=== PATIENT | male | born 1950 | race Caucasian/White ===

== ENCOUNTER 2017-01-26 21:49 | Inpatient (IN) | payer OTHER, MEDICARE ==
[~2017-01-26] VITALS: Ht 177.8 cm; Wt 106.1 kg
[~2017-01-26 21:49] MED LIST: BUPR150T PO; CARV12.5 PO; Cyclobenzaprine Hcl PO; ELMI100C PO; ENAL10TA7 PO; FENO160T2 PO; FURO1TAB93 PO; GABA250S PO; GLYB1TAB51 PO; HYDR-3580 PO; IPRAAER IN; MAGN500T4 PO; OMEP20CA5 PO; POTA99TA12 PO; ROSU10 PO; Z.0.OXYGENDME NC; ZITH250T PO
[2017-01-26 22:13] VITALS: BP 154/76; PULSE 85; RESP 18; TEMP 98.3; O2SAT 97
[2017-01-26 22:44] VITALS: RESP 20; O2SAT 94
[2017-01-26 22:48] VITALS: BP 140/71; PULSE 81; RESP 20; O2SAT 97
[2017-01-26] MEDS ORDERED: SODIUM CHLORIDE 0.9% FLUSH 10 ML FLUSH IVF PRN (23:00)
[2017-01-26] MEDS ORDERED: methylPREDNISolone SOD SUCC 125 MG/2 ML VIAL IVP ONE (23:00)
[2017-01-26 23:07] VITALS: O2SAT 100
[2017-01-26] MEDS: RESP: ALBUTEROL 2.5 MG/IPRATROPIUM 0.5 MG NEB (SCH) INH ×3 (23:07→23:27)
[2017-01-26] MEDS ORDERED: OMEP40CA2 PO (23:21)
[2017-01-26] MEDS ORDERED: ESCI20TA PO (23:21)
[2017-01-26] MEDS ORDERED: ROSU20 PO (23:21)
[2017-01-26] MEDS ORDERED: FURO40TA PO (23:21)
[2017-01-26] MEDS ORDERED: FLUT1INH INH (23:21)
[2017-01-26] MEDS ORDERED: ROSU1TAB6 PO (23:21)
[2017-01-26] MEDS ORDERED: D400400C PO (23:21)
[2017-01-26] MEDS ORDERED: ESSE250T PO (23:21)
[2017-01-26] MEDS ORDERED: CARV12.52 PO (23:21)
[2017-01-26] MEDS ORDERED: GABA600T PO (23:21)
[2017-01-26] MEDS ORDERED: ELMI100C PO (23:21)
[2017-01-26] MEDS ORDERED: METF1000 PO (23:21)
[2017-01-26] MEDS ORDERED: ASPI81CH CHEW (23:21)
[2017-01-26] MEDS ORDERED: POTA2.5T PO (23:21)
[2017-01-26 23:25] VITALS: PULSE 78; RESP 20; O2SAT 97
--- NOTE | 2017-01-26 23:40 | RADHPO ---
EXAM DATE/TIME: 01/26/2017 23:21 [place] COMPARISON: CHEST SINGLE AP, May 09, 2014, 6:29. INDICATIONS : Short of breath. MEDICAL HISTORY : Chronic obstructive pulmonary disease. Diabetes mellitus type II. SURGICAL HISTORY : None. ENCOUNTER: Initial ACUITY: 1 day PAIN SCORE: 0/10 LOCATION: Bilateral chest FINDINGS: A single view of the chest demonstrates the lungs to be symmetrically aerated without evidence of mas s, infiltrate or effusion. There is mild hazy opacity at the right lung base. There are multiple old healed left-sided rib fractures. The cardiomediastinal contours are unremarkable. Osseous structures are intact. CONCLUSION: 1. Mild hazy opacity at the right lung base. 2. Multiple old healed left-sided rib fractures. Steven Mejia MD on January 26, 2017 at 23:37 Board Certified Radiologist. This report was verified electronically.
[2017-01-26 23:48] LABS: AUTOMATED NEUTROPHIL # 4.9 TH/MM3 (1.8-7.7); BASOPHIL # 0.1 TH/MM3 (0-0.2); BASOPHIL % 2.1 % (0.0-2.0); EOSINOPHIL # 0.1 TH/MM3 (0-0.4); EOSINOPHIL % 0.8 % (0.0-4.0); HEMATOCRIT 42.4 % (39.0-51.0); LYMPH % 20.2 % (9.0-44.0); LYMPHOCYTE # 1.4 TH/MM3 (1.0-4.8); MEAN CELL VOLUME 92.3 FL (80.0-100.0); MEAN CORPUSCULAR HEMOGLOBIN 29.9 PG (27.0-34.0); MEAN CORPUSCULAR HGB CONC 32.4 % (32.0-36.0); MONO % 5.9 % (0.0-8.0); PLATELET COUNT 99 TH/MM3 (150-450); RED CELL DISTRIBUTION WIDTH 15.9 % (11.6-17.2); WHITE BLOOD COUNT 6.9 TH/MM3 (4.0-11.0)
[2017-01-26 23:57] LABS: CHLORIDE 97 MEQ/L (98-107); POTASSIUM 4.8 MEQ/L (3.5-5.1); SODIUM (NA) 139 MEQ/L (136-145)
[2017-01-27] VITALS (11 sets, daily range): BP systolic 132–176; BP diastolic 63–85; PULSE 83–94; RESP 18–20; TEMP 96.8–99; O2SAT 91–98
[2017-01-27 00:01] LABS: ANION GAP 3 MEQ/L (5-15); BLOOD UREA NITROGEN 21 MG/DL (7-18)
[2017-01-27 00:03] LABS: HEMO FLAGS AUTO DIFF
[2017-01-27 00:07] LABS: APTT (PATIENT) 23.2 SEC (24.3-30.1); INTERNATIONAL NORMALIZED RATIO 0.9 RATIO; PROTHROMBIN TIME - PATIENT 9.8 SEC (9.8-11.6)
[2017-01-27 00:08] LABS: ALKALINE PHOSPHATASE 222 U/L (45-117); ALT (GPT) 51 U/L (12-78); AST (GOT) 40 U/L (15-37); GLOMERULAR FILTRATION RATE 77 ML/MIN (>89); TOTAL BILIRUBIN ADULT 0.7 MG/DL (0.2-1.0)
[2017-01-27 00:12] LABS: CREATINE KINASE 54 U/L (39-308)
[2017-01-27 00:23] LABS: PLATELET ESTIMATE SMEAR LOW (NORMAL); PLATELET MORPHOLOGY NORMAL (NORMAL); SCAN/DIFF AUTO DIFF CONFIRMED
[2017-01-27] MEDS ORDERED: ASPIRIN 81 MG CHEW TAB CHEW ONE (00:45)
--- NOTE | 2017-01-27 01:05 | PD ---
HPI Chief Complaint: Respiratory Distress Time Seen by Provider: 22:48 Travel History International Travel<30 days: Yes Contact w/Intl Traveler<30days: Yes Name of Country Traveled to: [place] [facility] [place] Traveled to known affect area: No History of Present Illness HPI Patient is a 66-year-old male history of COPD who comes in complaining of shortness of breath. He was admitted at an outside hospital 3 weeks ago for 1 week's time for shortness of breath. He says at that time he was treated for pneumonia as well. He says since being discharged 2 weeks ago, his shortness of breath has steadily worsened. He was not given prescription for albuterol. He has been taking his other medications as prescribed. He is still smoking. He denies chest pain. He denies fever or chills. He is also complaining of bilateral leg swelling. He says the swelling has worsened and now he is weeping fluid. PFSH Past Medical History High Cholesterol: Yes Congestive Heart Failure: Yes COPD: Yes Diabetes: Yes Patient Takes Glucophage: No Hypertension: Yes Myocardial Infarction: Yes Influenza Vaccination: No Past Surgical History Cardiac Surgery: Yes Coronary Artery Bypass Graft: Yes Oral Surgery: Yes (throat polyps removed) Pacemaker: No Other Surgery: Yes Social History Alcohol Use: No Tobacco Use: Yes (1 2ppd) Substance Use: No Allergies-Medications (Allergen,Severity, Reaction): Coded Allergies: Contrast Media (Verified Allergy, Severe, HIVES, SWELLING, CHEST PALPITATIONS, 01/26/17) Demerol (Verified Allergy, Unknown, 01/26/17) PT DOES NOT RECALL REACTION Reported Meds & Prescriptions Reported Meds & Active Scripts Active Reported Potassium Gluconate 550 Mg Tab 550 Mg PO DAILY Magnesium 250 Mg Tab 250 Mg PO DAILY Vitamin D3 400 (Cholecalciferol) 400 Unit Cap 400 Units PO DAILY Escitalopram (Escitalopram Oxalate) 20 Mg Tab 20 Mg PO DAILY Crestor (Rosuvastatin Calcium) 20 Mg Tab 20 Mg PO DAILY Gabapentin 600 Mg Tab 900 Mg PO QID Metformin (Metformin HCl) 1,000 Mg Tab 1,000 Mg PO BIDPC With meals Furosemide 40 Mg Tab 40 Mg PO BID Elmiron (Pentosan Polysulfate Sodium) 100 Mg Cap 100 Mg PO TID Omeprazole 40 Mg Cap 40 Mg PO BID Rosuvastatin (Rosuvastatin Calcium) 10 Mg Tab 10 Mg PO HS Carvedilol 12.5 Mg Tab 12.5 Mg PO BID Breo Ellipta Inh (Fluticasone/Vilanterol) 100-25 Mcg/Act Inh 1 Puff INH DAILY Use daily at the same time. Aspirin 81 Mg Chew 324 Mg CHEW ONCE Review of Systems Except as stated in HPI: all other systems reviewed are Neg General / Constitutional: No: Fever, Chills HENT: No: Headaches, Lightheadedness Cardiovascular: No: Chest Pain or Discomfort Respiratory: Positive: Cough, Shortness of Breath, Wheezing Gastrointestinal: No: Nausea, Vomiting Musculoskeletal: Positive: Edema Skin: Positive Change in Pigmentation Neurologic: No: Weakness, Dizziness Physical Exam Narrative GENERAL: Awake and alert in mild respiratory distress. SKIN: Bilateral lower extremities are erythematous with leakage of clear fluids. HEAD: Atraumatic. Normocephalic. EYES: Pupils equal and round. No scleral icterus. ENT: Mucous membranes pink and moist. NECK: Trachea midline. No JVD. CARDIOVASCULAR: Regular rate and rhythm. No murmur appreciated. RESPIRATORY: Tachypnea, decreased breath sounds bilaterally. Breath sounds equal bilaterally. GASTROINTESTINAL: Abdomen soft, non-tender, nondistended. MUSCULOSKELETAL: No obvious deformities. No clubbing. No cyanosis. Large pitting edema bilateral lower extremities. NEUROLOGICAL: Awake and alert. No obvious cranial nerve deficits. Motor grossly within normal limits. Normal speech. PSYCHIATRIC: Appropriate mood and affect; insight and judgment normal. Data Data Last Documented VS Vital Signs Date Time Temp Pulse Resp B/P Pulse Ox O2 Delivery O2 Flow Rate FiO2 01/26/17 23:25 78 20 97 Nasal Cannula 2 01/26/17 22:48 140/71 01/26/17 22:13 98.3 Orders Complete Blood Count With Diff (01/26/17 22:57) Comprehensive Metabolic Panel (01/26/17 22:57) B-Type Natriuretic Peptide (01/26/17 22:57) Act Partial Throm Time (Ptt) (01/26/17 22:57) Prothrombin Time / Inr (Pt) (01/26/17 22:57) Ckmb (Isoenzyme) Profile (01/26/17 22:57) Troponin I (01/26/17 22:57) Iv Access Insert/Monitor (01/26/17 22:57) Electrocardiogram (01/26/17 22:57) Ecg Monitoring (01/26/17 22:57) Oximetry (01/26/17 22:57) Oxygen Administration (01/26/17 22:57) Chest, Single Ap (01/26/17 22:57) Sodium Chloride 0.9% Flush (Ns Flush) (01/26/17 23:00) Methylprednisolone So Succ Inj (Solumedr (01/26/17 23:00) Albuterol-Ipratropium Neb (Duoneb Neb) (01/26/17 23:00) Aspirin Chew (Aspirin Chew) (01/27/17 00:45) Admit Order (Ed Use Only) (01/27/17 ) Labs Laboratory Tests Test 01/26/17 23:20 White Blood Count 6.9 TH/MM3 Red Blood Count 4.60 MIL/MM3 Hemoglobin 13.8 GM/DL Hematocrit 42.4 % Mean Corpuscular Volume 92.3 FL Mean Corpuscular Hemoglobin 29.9 PG Mean Corpuscular Hemoglobin 32.4 % Concent Red Cell Distribution Width 15.9 % Platelet Count 99 TH/MM3 Mean Platelet Volume 9.8 FL Neutrophils (%) (Auto) 71.0 % Lymphocytes (%) (Auto) 20.2 % Monocytes (%) (Auto) 5.9 % Eosinophils (%) (Auto) 0.8 % Basophils (%) (Auto) 2.1 % Neutrophils # (Auto) 4.9 TH/MM3 Lymphocytes # (Auto) 1.4 TH/MM3 Monocytes # (Auto) 0.4 TH/MM3 Eosinophils # (Auto) 0.1 TH/MM3 Basophils # (Auto) 0.1 TH/MM3 CBC Comment AUTO DIFF Differential Comment AUTO DIFF CONFIRMED Platelet Estimate LOW Platelet Morphology Comment NORMAL Red Cell Morphology Comment NORMAL Prothrombin Time 9.8 SEC Prothromb Time International 0.9 RATIO Ratio Activated Partial 23.2 SEC Thromboplast Time Sodium Level 139 MEQ/L Potassium Level 4.8 MEQ/L Chloride Level 97 MEQ/L Carbon Dioxide Level 39.0 MEQ/L Anion Gap 3 MEQ/L Blood Urea Nitrogen 21 MG/DL Creatinine 0.98 MG/DL Estimat Glomerular Filtration 77 ML/MIN Rate Random Glucose 177 MG/DL Calcium Level 8.8 MG/DL Total Bilirubin 0.7 MG/DL Aspartate Amino Transf 40 U/L (AST/SGOT) Alanine Aminotransferase 51 U/L (ALT/SGPT) Alkaline Phosphatase 222 U/L Total Creatine Kinase 54 U/L Troponin I 0.08 NG/ML B-Type Natriuretic Peptide 179 PG/ML Total Protein 6.8 GM/DL Albumin 2.6 GM/DL MDM Medical Decision Making Medical Screen Exam Complete: Yes Emergency Medical Condition: Yes Medical Record Reviewed: Yes Interpretation(s) ECG shows sinus rhythm at 73, no ST elevation or depression, right bundle- branch block. Differential Diagnosis COPD exacerbation versus pneumonia versus CHF versus ACS Narrative Course Patient is a 66-year-old male comes in complaining of shortness of breath. He has decreased breath sounds bilaterally and is to On arrival. O2 sat was in the 80s on room air, improved on nasal cannula to 94%. IVs have, labs sent, patient connected to the weight tester. Labs show a troponin of 0.08, this is likely due to hypoxia. Chest x-ray shows a right-sided opacity. Patient was on antibiotics for a week and a half. He has no fever and white blood cell count is within normal limits , I believe x-ray findings reveal a resolving pneumonia. Patient given 3 duo nebs as well as Solu-Medrol. He reports feeling better. We 'll be admitted for further management of COPD as well as trending of his troponin. Diagnosis Primary Impression: COPD exacerbation Additional Impressions: Hypoxia Elevated troponin Admitting Information Admitting Physician Requests: Admit Condition: Stable Amara Watts MD January 27, 2017 01:05
[2017-01-27] MEDS ORDERED: RESP: ALBUTEROL 2.5 MG/IPRATROPIUM 0.5 MG NEB (PRN) NEB (01:45)
[2017-01-27] MEDS ORDERED: SODIUM CHLORIDE 0.9% FLUSH 10 ML FLUSH IV FLUSH PRN (01:45)
[2017-01-27] MEDS ORDERED: GLUCAGON 1 MG/ML VIAL OTHER PRN ×2 (01:45→10:00)
[2017-01-27] MEDS ORDERED: DEXTROSE 50% IN WATER 50 ML VIAL(D50) IV PRN ×2 (01:45→10:00)
[2017-01-27] MEDS ORDERED: NALOXONE HCL 0.4 MG/ML AMP IV PRN (01:45)
[2017-01-27] MEDS: RESP: ALBUTEROL 2.5 MG/IPRATROPIUM 0.5 MG NEB (SCH) NEB ×4 (03:27→20:59)
[2017-01-27] MEDS ORDERED: methylPREDNISolone SOD SUCC 40 MG/1 ML VIAL IV PUSH SCH (06:00)
[2017-01-27] MEDS: PANTOPRAZOLE SODIUM 40 MG VIAL IV PUSH SCH (06:49)
[2017-01-27] MEDS ORDERED: INSULIN ASPART SUPPLEMENTAL SCALE SQ SCH (07:00)
[2017-01-27] MEDS: SODIUM CHLORIDE 0.9% FLUSH 10 ML FLUSH IV FLUSH SCH ×2 (09:34→22:26)
[2017-01-27 09:57] LABS: POTASSIUM 4.3 MEQ/L (3.5-5.1)
[2017-01-27 10:00] LABS: BICARBONATE 35.1 MEQ/L (21.0-32.0)
[2017-01-27] MEDS: REMOVE OLD PATCH T-DERMAL SCH (10:00)
[2017-01-27] MEDS ORDERED: FUROSEMIDE 100 MG/10 ML VIAL IV PUSH ONE (10:00)
--- NOTE | 2017-01-27 10:10 | HHI.HP ---
[facility] Casimiro Hicks MD Admission Diagnosis COPD exacerbation, elevated troponin Diagnoses: (1) Hypoxia Diagnosis: Principal (2) COPD (chronic obstructive pulmonary disease) Diagnosis: Secondary (3) CHF exacerbation Diagnosis: Principal Travel History International Travel<30 Days: Yes Contact w/Intl Traveler <30 Da: Yes Name of Country Traveled to: [facility], [facility], [place] Traveled to Known Affected Are: No History of Present Illness Mr. Edwards is a 66 year old male. He has COPD and CHF (EF of 40% reported) at baseline. He was recently hospitalized for a COPD Exacerbation with a component of CHF Exacerbation and was discharged from [facility] ([facility] 6 days ago. Since this time he has developed a return of SOB with PND. His legs have swelled to the thighs and he has developed blisters and weeping of his legs below the knees. He reports some wheezing, but not severe or persistent wheezing. However, his dyspnea is constant and worsened when he tries to lay back. He has been sleeping poorly. Other conditions at baseline are DM2, CHF, HTN, and CAD. He has a history of CABGx4. He is a smoker, but denies alcohol or illicit drug abuse. He is feeling slightly better than admit last night, but not significantly better yet. No other complaints. No chest pain. Hypoxia has resolved with oxygen supplementation. A mild elevation of his troponin was present last night (follow up pending, degree of last nights elevation would be consistent with CHF Exacerbation and Hypoxia). Review of Systems Constitutional: DENIES: Fever, Chills Endocrine: DENIES: Heat/cold intolerance, Polydipsia, Polyuria Eyes: DENIES: Blurred vision, Diplopia Ears, nose, mouth, throat: DENIES: Hearing loss, Vertigo Respiratory: COMPLAINS OF: Wheezing, Shortness of breath, DENIES: Cough Cardiovascular: DENIES: Chest pain, Palpitations, Syncope Gastrointestinal: DENIES: Abdominal pain, Black stools, Bloody stools Musculoskeletal: DENIES: Joint pain, Muscle aches, Stiffness, Joint Swelling Integumentary: DENIES: Abnormal pigmentation Hematologic/lymphatic: DENIES: Bruising Immunologic/allergic: DENIES: Eczema Neurologic: DENIES: Abnormal gait Psychiatric: DENIES: Anxiety, Hallucinations Past Family Social History Past Medical History CHF HTN DM2 CAD Past Surgical History CABGx4 Reported Medications Reported Meds & Active Scripts Active Reported Potassium Gluconate 550 Mg Tab 550 Mg PO DAILY Magnesium 250 Mg Tab 250 Mg PO DAILY Vitamin D3 400 (Cholecalciferol) 400 Unit Cap 400 Units PO DAILY Escitalopram (Escitalopram Oxalate) 20 Mg Tab 20 Mg PO DAILY Crestor (Rosuvastatin Calcium) 20 Mg Tab 20 Mg PO DAILY Gabapentin 600 Mg Tab 900 Mg PO QID Metformin (Metformin HCl) 1,000 Mg Tab 1,000 Mg PO BIDPC With meals Furosemide 40 Mg Tab 40 Mg PO BID Elmiron (Pentosan Polysulfate Sodium) 100 Mg Cap 100 Mg PO TID Omeprazole 40 Mg Cap 40 Mg PO BID Rosuvastatin (Rosuvastatin Calcium) 10 Mg Tab 10 Mg PO HS Carvedilol 12.5 Mg Tab 12.5 Mg PO BID Breo Ellipta Inh (Fluticasone/Vilanterol) 100-25 Mcg/Act Inh 1 Puff INH DAILY Use daily at the same time. Aspirin 81 Mg Chew 324 Mg CHEW ONCE Allergies: Coded Allergies: Contrast Media (Verified Allergy, Severe, HIVES, SWELLING, CHEST PALPITATIONS, 01/26/17) Demerol (Verified Allergy, Unknown, 01/26/17) PT DOES NOT RECALL REACTION Active Ordered Medications Administered Medications Medications (Trade) Dose Ordered Sig/Nisreen Route PRN Reason Start Time Stop Time Status Last Admin Dose Admin Sodium Chloride (NS Flush) 2 ml UNSCH PRN IVF FLUSH AFTER USING IV ACCESS 01/26/17 23:00 01/27/17 00:58 Sodium Chloride (NS Flush) 2 ml BID IV FLUSH 01/27/17 09:00 01/27/17 09:34 Pantoprazole Sodium (Protonix Inj) 40 mg Q24H IV PUSH 01/27/17 06:00 01/27/17 06:49 Family History OA in mother Prostate CA in father DM and IN in distant relatives Social History Smokes 1ppd No alcohol abuse No drug abuse Physical Exam Vital Signs Vital Signs Date Time Temp Pulse Resp B/P Pulse Ox O2 Delivery O2 Flow Rate FiO2 01/27/17 09:29 95 Nasal Cannula 2.00 01/27/17 08:00 98.1 90 18 159/82 92 01/27/17 03:27 93 Nasal Cannula 3.00 01/27/17 02:30 99.0 89 20 146/83 97 01/27/17 01:36 90 20 132/63 97 Nasal Cannula 01/27/17 01:08 89 20 176/81 97 Nasal Cannula 2 01/26/17 23:25 78 20 97 Nasal Cannula 2 01/26/17 23:25 97 Nasal Cannula 2 01/26/17 23:07 100 Nasal Cannula 2.00 01/26/17 22:48 79 20 93 Room Air 01/26/17 22:48 81 20 140/71 97 Nasal Cannula 2 01/26/17 22:44 20 94 01/26/17 22:13 98.3 85 18 154/76 97 Physical Exam GENERAL: NAD, A&Ox3, mild respiratory distress SKIN: Warm and dry. HEAD: Normocephalic. EYES: No scleral icterus. No injection or drainage. NECK: Supple, trachea midline. No JVD or lymphadenopathy. CARDIOVASCULAR: Regular rate and rhythm without murmurs, gallops, or rubs. RESPIRATORY: Breath sounds equal bilaterally. No accessory muscle use. Bilateral crackles at bases. No wheezing GASTROINTESTINAL: Abdomen soft, non-tender, nondistended. MUSCULOSKELETAL: No cyanosis. 2-3 pitting edema at lower extremities up to mid thighs. Blisters and ulcers of skin at lower legs. BACK: Nontender without obvious deformity. No CVA tenderness. Laboratory Laboratory Tests Test 01/26/17 23:20 White Blood Count 6.9 Red Blood Count 4.60 Hemoglobin 13.8 Hematocrit 42.4 Mean Corpuscular Volume 92.3 Mean Corpuscular Hemoglobin 29.9 Mean Corpuscular Hemoglobin 32.4 Concent Red Cell Distribution Width 15.9 Platelet Count 99 Mean Platelet Volume 9.8 Neutrophils (%) (Auto) 71.0 Lymphocytes (%) (Auto) 20.2 Monocytes (%) (Auto) 5.9 Eosinophils (%) (Auto) 0.8 Basophils (%) (Auto) 2.1 Neutrophils # (Auto) 4.9 Lymphocytes # (Auto) 1.4 Monocytes # (Auto) 0.4 Eosinophils # (Auto) 0.1 Basophils # (Auto) 0.1 CBC Comment AUTO DIFF Differential Comment AUTO DIFF CONFIRMED Platelet Estimate LOW Platelet Morphology Comment NORMAL Red Cell Morphology Comment NORMAL Prothrombin Time 9.8 Prothromb Time International 0.9 Ratio Activated Partial 23.2 Thromboplast Time Sodium Level 139 Potassium Level 4.8 Chloride Level 97 Carbon Dioxide Level 39.0 Anion Gap 3 Blood Urea Nitrogen 21 Creatinine 0.98 Estimat Glomerular Filtration 77 Rate Random Glucose 177 Calcium Level 8.8 Total Bilirubin 0.7 Aspartate Amino Transf 40 (AST/SGOT) Alanine Aminotransferase 51 (ALT/SGPT) Alkaline Phosphatase 222 Total Creatine Kinase 54 Troponin I 0.08 B-Type Natriuretic Peptide 179 Total Protein 6.8 Albumin 2.6 Result Diagram: 01/26/17231901/26/172319 Imaging Last Impressions Chest X-Ray 01/26/172256 Signed Impressions: Service Date/Time: Thursday, January 26, 2017 23:21 - CONCLUSION: 1. Mild hazy opacity at the right lung base. 2. Multiple old healed left-sided rib fractures. Steven Mejia MD Assessment and Plan Problem List: (1) CHF exacerbation ICD Code: I50.9 Status: Acute (2) COPD (chronic obstructive pulmonary disease) ICD Code: J44.9 Status: Acute (3) Hypoxia ICD Code: R09.02 Status: Acute (4) DM2 (diabetes mellitus, type 2) ICD Code: E11.9 Status: Acute (5) Elevated troponin ICD Code: R74.8 Status: Acute Assessment and Plan Assessment and Plan: 66 year old male, admitted with a CHF Exacerbation. CHF Exacerbation CAD, Hx of CABG Approximately 6-8L of fluid excess suspected IV Lasix for diuresis Follow clinically Monitor renal function Statin added due to risk profile Aspirin added COPD Hypoxia No acute exacerbation Stop steroids (wean) Hypoxia is more likely a complication of CHF Exacerbation is presence of COPD This condition compounds his CHF Exacerbation symptoms Supplemental oxygen Follow oxygen saturations Elevated Troponin Repeat Troponin to determine stability CHF and Hypoxia could manifest a troponin-i of 0.08 DM2 Insulin Sliding Scale Diabetic Diet Follow blood sugars DVT Prophylaxis Lovenox Code Status Full Code Physician Certification 2 Midnight Certification Type: Admission for Inpatient Services Order for Inpatient Services The services are ordered in accordance with Medicare regulations or non- Medicare payer requirements, as applicable. In the case of services not specified as inpatient-only, they are appropriately provided as inpatient services in accordance with the 2-midnight benchmark. Estimated LOS (days): 3 days is the estimated time the patient will need to remain in the hospital, assuming treatment plan goals are met and no additional complications. Post-Hospital Plan: Home González Meng MD January 27, 2017 10:10 am
--- NOTE | 2017-01-27 10:26 | EKG ---
Date Performed: 01/26/2017 Time Performed: 23:01:08 PTAGE: 66 years EKG: Sinus rhythm . Lead(s) unsuitable for analysis: V2 Left axis deviation RBBB with left anterior fascicular block An terior infarct - age undetermined Possible left ventricular hypertrophy Inferior/lateral ST-T changes are probably due to ventricular hypertrophy Abnormal ECG PREVIOUS TRACING : 05/06/2014 23.00 DOCTOR: Yoan Ken Interpretating Date/Time 01/27/2017 10:21:38
[2017-01-27] MEDS ORDERED: FUROSEMIDE 40 MG/4 ML VIAL IV PUSH ONE (11:15)
[2017-01-27] MEDS: NICOTINE 21 MG/24 HR PATCH T-DERMAL SCH (11:19)
[2017-01-27] MEDS: ENOXAPARIN SODIUM 40 MG/0.4 ML SYRINGE SQ SCH (11:19)
[2017-01-27] MEDS: INSULIN ASPART SUPPLEMENTAL SCALE SQ SCH ×3 (11:35→22:26)
[2017-01-27] MEDS: FUROSEMIDE 40 MG/4 ML VIAL IV PUSH SCH (14:22)
[2017-01-28] VITALS (8 sets, daily range): BP systolic 114–158; BP diastolic 78–87; PULSE 54–88; RESP 16–20; TEMP 97.7–98.4; O2SAT 91–98
[2017-01-28] MEDS: RESP: ALBUTEROL 2.5 MG/IPRATROPIUM 0.5 MG NEB (SCH) NEB ×4 (04:02→21:02)
--- NOTE | 2017-01-28 04:23 | HHI.PR ---
Addendum to Inpatient Note Addendum Reason: Additional Documentation Additional Information Notified by nursing staff that patient had a 10 beat run of asymptomatic v-tach ; patient was asleep when this happened but denied chest pain when awakened by nurse; VSS oxygen saturation 94% on room air. I have ordered CBC, BMP, Magnesium, and Troponin I stat. Will follow results. Arlene Sam January 28, 2017 04:23
[2017-01-28 04:46] LABS: AUTOMATED NEUTROPHIL # 5.4 TH/MM3 (1.8-7.7); BASOPHIL # 0.1 TH/MM3 (0-0.2); BASOPHIL % 0.8 % (0.0-2.0); EOSINOPHIL % 0.1 % (0.0-4.0); HEMATOCRIT 38.4 % (39.0-51.0); LYMPH % 15.5 % (9.0-44.0); LYMPHOCYTE # 1.1 TH/MM3 (1.0-4.8); MEAN CELL VOLUME 91.5 FL (80.0-100.0); MEAN CORPUSCULAR HEMOGLOBIN 29.8 PG (27.0-34.0); MEAN CORPUSCULAR HGB CONC 32.6 % (32.0-36.0); MONO % 5.2 % (0.0-8.0); NEUT % 78.4 % (16.0-70.0); PLATELET COUNT 116 TH/MM3 (150-450); RED CELL DISTRIBUTION WIDTH 15.7 % (11.6-17.2)
[2017-01-28 04:47] LABS: HEMO FLAGS DIFF FINAL
[2017-01-28 04:54] LABS: POTASSIUM 3.7 MEQ/L (3.5-5.1)
[2017-01-28 04:58] LABS: BICARBONATE 36.2 MEQ/L (21.0-32.0); MAGNESIUM 1.8 MG/DL (1.5-2.5)
[2017-01-28] MEDS: PANTOPRAZOLE SODIUM 40 MG VIAL IV PUSH SCH (06:04)
[2017-01-28] MEDS: INSULIN ASPART SUPPLEMENTAL SCALE SQ SCH ×4 (06:23→21:00)
[2017-01-28] MEDS ORDERED: cloNIDine HCL 0.1 MG TAB PO PRN (07:30)
[2017-01-28] MEDS: REMOVE OLD PATCH T-DERMAL SCH (09:00)
[2017-01-28] MEDS: SODIUM CHLORIDE 0.9% FLUSH 10 ML FLUSH IV FLUSH SCH ×2 (09:00→20:41)
[2017-01-28] MEDS ORDERED: predniSONE 5 MG TAB PO SCH (09:00)
[2017-01-28] MEDS: NICOTINE 21 MG/24 HR PATCH T-DERMAL SCH (09:53)
[2017-01-28] MEDS: FUROSEMIDE 40 MG/4 ML VIAL IV PUSH SCH ×2 (09:53→17:23)
[2017-01-28] MEDS: ATORVASTATIN 40 MG TAB PO SCH (09:54)
[2017-01-28] MEDS: ASPIRIN EC 81 MG TABEC PO SCH (09:54)
--- NOTE | 2017-01-28 09:57 | HHI.PR ---
Subjective Remarks No new complaints. Breathing is improved. Approaching baseline functional status (non-ambulatory at baseline, but stands/pivots). Blood sugars improved, but not yet controlled. Objective Vital Signs Date Time Temp Pulse Resp B/P Pulse Ox O2 Delivery O2 Flow Rate FiO2 01/28/17 04:01 97.7 88 20 158/83 94 01/28/17 00:00 98.0 87 18 145/82 95 01/27/17 20:58 91 21 01/27/17 20:30 87 01/27/17 20:00 96.9 83 20 147/85 93 01/27/17 16:28 96.8 85 18 139/76 97 01/27/17 12:00 97.5 94 18 135/74 98 I/O 01/27/17 01/27/17 01/27/17 01/28/17 01/28/17 01/28/17 07:00 15:00 23:00 07:00 15:00 23:00 Intake Total 550 ml 800 ml 780 ml Output Total 2275 ml 1400 ml 750 ml Balance -1725 ml -600 ml 30 ml Intake Oral 550 ml 800 ml 780 ml Output Urine Total 2275 ml 1400 ml 750 ml # Bowel Movements 0 Result Diagram: 01/28/17 0430 01/28/17 0430 Imaging Last Impressions Chest X-Ray 01/26/17 252 Signed Impressions: Service Date/Time: Thursday, January 26, 2017 23:21 - CONCLUSION: 1. Mild hazy opacity at the right lung base. 2. Multiple old healed left-sided rib fractures. Steven Mejia MD Objective Remarks GENERAL: NAD, A&Ox3 SKIN: Warm and dry. Midline sternal scar. HEAD: Normocephalic. EYES: No scleral icterus. No injection or drainage. NECK: Supple, trachea midline. No JVD or lymphadenopathy. CARDIOVASCULAR: Regular rate and rhythm without murmurs, gallops, or rubs. RESPIRATORY: Breath sounds equal bilaterally. No accessory muscle use. No crackles (resolved). GASTROINTESTINAL: Abdomen soft, non-tender, nondistended. MUSCULOSKELETAL: No cyanosis, Lower extremity edema and blisters are improved ( less edema than prior day). A/P Problem List: (1) DM2 (diabetes mellitus, type 2) ICD Code: E11.9 (2) CHF exacerbation ICD Code: I50.9 (3) Elevated troponin ICD Code: R74.8 (4) Hypoxia ICD Code: R09.02 (5) Hyperlipidemia ICD Code: E78.5 (6) COPD (chronic obstructive pulmonary disease) ICD Code: J44.9 Assessment and Plan Assessment and Plan: 66 year old male, admitted with a CHF Exacerbation. Blood sugars not yet controlled. Long acting insulin added. Significant improvements on diuresis thus far, in regards to his CHF exacerbation. Dyspnea is improving. CHF Exacerbation CAD, Hx of CABG Improving on diuresis Approximately 6-8L of fluid excess suspected at start IV Lasix for diuresis Follow clinically Monitor renal function Statin due to risk profile Aspirin COPD Hypoxia No acute exacerbation Stop steroids (wean) Hypoxia is more likely a complication of CHF Exacerbation is presence of COPD This condition compounds his CHF Exacerbation symptoms Supplemental oxygen Follow oxygen saturations Elevated Troponin Stable, without upward trend or symptoms Unlikely ischemic Lower extremity ulcers/blisters From edema Wound care in place Dressing changes every 3 days DM2 Insulin Sliding Scale Diabetic Diet Follow blood sugars DVT Prophylaxis Lovenox Code Status Full Code González Meng MD January 28, 2017 09:57
[2017-01-28] MEDS: INSULIN DETEMIR 100 UNITS/ML VIAL SQ SCH (09:58)
[2017-01-28] MEDS ORDERED: INFLUENZA VIRUS VACCINE (QUADRIVALENT) 0.5 ML SYR IM ONE (10:00)
[2017-01-28] MEDS: ENOXAPARIN SODIUM 40 MG/0.4 ML SYRINGE SQ SCH (12:42)
[2017-01-29] VITALS (10 sets, daily range): BP systolic 115–166; BP diastolic 62–91; PULSE 85–100; RESP 16–20; TEMP 96.5–98; O2SAT 91–99
[2017-01-29] MEDS: RESP: ALBUTEROL 2.5 MG/IPRATROPIUM 0.5 MG NEB (SCH) NEB ×4 (03:08→21:25)
[2017-01-29] MEDS: PANTOPRAZOLE SODIUM 40 MG VIAL IV PUSH SCH (05:29)
[2017-01-29] MEDS: REMOVE OLD PATCH T-DERMAL SCH (09:00)
[2017-01-29] MEDS: SODIUM CHLORIDE 0.9% FLUSH 10 ML FLUSH IV FLUSH SCH ×2 (09:00→20:07)
[2017-01-29] MEDS: FUROSEMIDE 40 MG/4 ML VIAL IV PUSH SCH ×2 (09:54→18:25)
[2017-01-29] MEDS: NICOTINE 21 MG/24 HR PATCH T-DERMAL SCH (09:54)
[2017-01-29] MEDS: ENOXAPARIN SODIUM 40 MG/0.4 ML SYRINGE SQ SCH (09:55)
[2017-01-29] MEDS: INSULIN ASPART SUPPLEMENTAL SCALE SQ SCH ×4 (09:58→20:15)
[2017-01-29] MEDS: INSULIN DETEMIR 100 UNITS/ML VIAL SQ SCH (09:59)
[2017-01-29] MEDS: ATORVASTATIN 40 MG TAB PO SCH (10:03)
[2017-01-29] MEDS: ASPIRIN EC 81 MG TABEC PO SCH (10:03)
--- NOTE | 2017-01-29 10:58 | HHI.PR ---
Subjective Remarks No new complaints. Breathing remains stable. His legs continued to improve. Blisters are starting to dry. He is not yet at baseline but is nearing baseline and may be there by tomorrow. Objective Vital Signs Date Time Temp Pulse Resp B/P Pulse Ox O2 Delivery O2 Flow Rate FiO2 01/29/17 09:32 94 21 01/29/17 08:00 98.0 86 18 155/90 97 01/29/17 04:00 97.6 92 18 150/74 94 01/29/17 01:00 86 20 142/90 95 01/29/17 00:00 96.8 96 16 166/91 94 01/28/17 21:00 91 21 01/28/17 20:00 98.0 86 20 142/87 95 01/28/17 16:00 98.1 77 18 138/80 96 01/28/17 12:00 98.0 80 18 140/81 97 I/O 01/28/17 01/28/17 01/28/17 01/29/17 01/29/17 01/29/17 07:00 15:00 23:00 07:00 15:00 23:00 Intake Total 780 ml 240 ml 500 ml Output Total 750 ml 2150 ml 1200 ml 650 ml Balance 30 ml -2150 ml -960 ml -150 ml Intake Oral 780 ml 240 ml 500 ml Output Urine Total 750 ml 2150 ml 1200 ml 650 ml # Bowel Movements 0 Result Diagram: 01/28/17 0430 01/28/17 0430 Objective Remarks GENERAL: NAD, A&Ox3 SKIN: Warm and dry. Midline sternal scar. HEAD: Normocephalic. EYES: No scleral icterus. No injection or drainage. NECK: Supple, trachea midline. No JVD or lymphadenopathy. CARDIOVASCULAR: Regular rate and rhythm without murmurs, gallops, or rubs. RESPIRATORY: Breath sounds equal bilaterally. No accessory muscle use. No crackles (resolved). GASTROINTESTINAL: Abdomen soft, non-tender, nondistended. MUSCULOSKELETAL: No cyanosis, Lower extremity edema and blisters are improved ( less edema than prior day). A/P Problem List: (1) DM2 (diabetes mellitus, type 2) ICD Code: E11.9 (2) CHF exacerbation ICD Code: I50.9 (3) Elevated troponin ICD Code: R74.8 (4) Hypoxia ICD Code: R09.02 (5) Hyperlipidemia ICD Code: E78.5 (6) COPD (chronic obstructive pulmonary disease) ICD Code: J44.9 Assessment and Plan Assessment and Plan: 66 year old male, admitted with a CHF Exacerbation. Blood sugars not yet controlled. Continues to improve with diuresis. Potential discharge tomorrow. CHF Exacerbation CAD, Hx of CABG Improving on diuresis Approximately 6-8L of fluid excess suspected at start IV Lasix for diuresis Follow clinically Monitor renal function Statin due to risk profile Aspirin COPD Hypoxia No acute exacerbation Stop steroids (wean) Hypoxia is more likely a complication of CHF Exacerbation is presence of COPD This condition compounds his CHF Exacerbation symptoms Supplemental oxygen Follow oxygen saturations Elevated Troponin Stable, without upward trend or symptoms Unlikely ischemic Lower extremity ulcers/blisters From edema Wound care in place Dressing changes every 3 days DM2 Insulin Sliding Scale Diabetic Diet Follow blood sugars DVT Prophylaxis Lovenox Code Status Full Code González Meng MD January 29, 2017 10:58 am
[2017-01-30 00:20] VITALS: BP 155/83; PULSE 102; RESP 18; TEMP 97.7; O2SAT 96
[2017-01-30] MEDS: RESP: ALBUTEROL 2.5 MG/IPRATROPIUM 0.5 MG NEB (SCH) NEB ×2 (03:05→09:23)
[2017-01-30 04:09] VITALS: BP 160/93; PULSE 94; RESP 18; TEMP 98.3; O2SAT 91
[2017-01-30] MEDS: PANTOPRAZOLE SODIUM 40 MG VIAL IV PUSH SCH (05:49)
[2017-01-30 08:00] VITALS: BP 163/100; PULSE 96; RESP 24; TEMP 96.7; O2SAT 93
[2017-01-30] MEDS: NICOTINE 21 MG/24 HR PATCH T-DERMAL SCH (08:40)
[2017-01-30] MEDS: INSULIN DETEMIR 100 UNITS/ML VIAL SQ SCH (08:40)
[2017-01-30] MEDS: FUROSEMIDE 40 MG/4 ML VIAL IV PUSH SCH (08:41)
[2017-01-30] MEDS: ATORVASTATIN 40 MG TAB PO SCH (08:41)
[2017-01-30] MEDS: ASPIRIN EC 81 MG TABEC PO SCH (08:41)
[2017-01-30] MEDS: SODIUM CHLORIDE 0.9% FLUSH 10 ML FLUSH IV FLUSH SCH (08:41)
[2017-01-30 09:25] VITALS: O2SAT 91
[2017-01-30] MEDS ORDERED: FURO40TA PO (09:33)
--- NOTE | 2017-01-30 09:37 | HHI.DS ---
Discharge Summary Admission Date January 27, 2017 at 1:06 am Discharge Date: January 30, 2017 Admitting Diagnosis COPD exacerbation, elevated troponin (1) CHF exacerbation ICD Code: I50.9 (2) COPD (chronic obstructive pulmonary disease) ICD Code: J44.9 Diagnosis: Secondary (3) Hypoxia ICD Code: R09.02 Diagnosis: Secondary (4) DM2 (diabetes mellitus, type 2) ICD Code: E11.9 Diagnosis: Secondary (5) Elevated troponin ICD Code: R74.8 Diagnosis: Secondary (6) Systolic and diastolic CHF, acute on chronic ICD Code: I50.43 Diagnosis: Principal Procedures None Brief History - From Admission Mr. Edwards is a 66 year old male. He has COPD and CHF (EF of 40% reported) at baseline. He was recently hospitalized for a COPD Exacerbation with a component of CHF Exacerbation and was discharged from [facility] ([facility] 6 days ago. Since this time he has developed a return of SOB with PND. His legs have swelled to the thighs and he has developed blisters and weeping of his legs below the knees. He reports some wheezing, but not severe or persistent wheezing. However, his dyspnea is constant and worsened when he tries to lay back. He has been sleeping poorly. Other conditions at baseline are DM2, CHF, HTN, and CAD. He has a history of CABGx4. He is a smoker, but denies alcohol or illicit drug abuse. He is feeling slightly better than admit last night, but not significantly better yet. No other complaints. No chest pain. Hypoxia has resolved with oxygen supplementation. A mild elevation of his troponin was present last night (follow up pending, degree of last nights elevation would be consistent with CHF Exacerbation and Hypoxia). CBC/BMP: 01/28/17 0430 01/28/17 0430 Significant Findings Laboratory Tests Test 01/28/17 04:30 Red Blood Count 4.20 MIL/MM3 (4.50-5.90) Hemoglobin 12.5 GM/DL (13.0-17.0) Hematocrit 38.4 % (39.0-51.0) Platelet Count 116 TH/MM3 (150-450) Neutrophils (%) (Auto) 78.4 % (16.0-70.0) Chloride Level 96 MEQ/L (98-107) Carbon Dioxide Level 36.2 MEQ/L (21.0-32.0) Blood Urea Nitrogen 27 MG/DL (7-18) Estimat Glomerular Filtration 75 ML/MIN (>89) Rate Random Glucose 272 MG/DL (74-106) Troponin I 0.08 NG/ML (0.02-0.05) Imaging Last Impressions Chest X-Ray 01/26/17 0999 Signed Impressions: Service Date/Time: Thursday, January 26, 2017 23:21 - CONCLUSION: 1. Mild hazy opacity at the right lung base. 2. Multiple old healed left-sided rib fractures. Steven Mejia MD PE at Discharge GENERAL: NAD, A&Ox3 SKIN: Warm and dry. HEAD: Normocephalic. EYES: No scleral icterus. No injection or drainage. NECK: Supple, trachea midline. No JVD or lymphadenopathy. CARDIOVASCULAR: Regular rate and rhythm without murmurs, gallops, or rubs. RESPIRATORY: Breath sounds equal bilaterally. No accessory muscle use. GASTROINTESTINAL: Abdomen soft, non-tender, nondistended. MUSCULOSKELETAL: No cyanosis, or edema. Sternal scar. Muscular atrophy of arms and legs. Hospital Course Mr. Edwards is a 66-year-old male admitted with respiratory distress and hypoxia. Etiology was found to be secondary to CHF exacerbation. He reports being compliant with his home medications of furosemide 40 mg by mouth twice a day. Dressings were changed to IV form which effectively doubles his dosing. Over the last 3 days he has had resolution of his symptoms as well as elevation of his fluid balance and resolution of his lower extremity edema. She likely needs increased maintenance dosing of his furosemide. I'm changing his home dose to 60 mg by mouth twice a day for his furosemide. Today he has no other complaints and feels at baseline. He is medically stable for discharge. She will discharge home today. He has no interest in PT though he does have compromised ambulation at baseline. Pt Condition on Discharge: Stable Discharge Disposition: Discharge Home Discharge Time: <= 30 minutes Discharge Instructions DIET: Follow Instructions for: Heart Healthy Diet, Diabetic Diet Activities you can perform: Regular-No Restrictions Follow up Referrals: Cardiology - 2 Weeks PCP Follow-up - 1 Week New Medications: Furosemide (Furosemide) 40 Mg Tab 60 MG PO BID CHF #90 Ref 0 TAB Continued Medications: Aspirin (Aspirin) 81 Mg Chew 324 MG CHEW ONCE #4 Ref 0 TAB Carvedilol (Carvedilol) 12.5 Mg Tab 12.5 MG PO BID #60 Ref 0 TAB Cholecalciferol (Vitamin D3 400) 400 Unit Cap 400 UNITS PO DAILY Escitalopram (Escitalopram) 20 Mg Tab 20 MG PO DAILY #30 Ref 0 TAB Fluticasone-Vilanterol Inh (Breo Ellipta Inh) 100-25 Mcg/Act Inh 1 PUFF INH DAILY Use daily at the same time. #1 Ref 0 INHALER Gabapentin (Gabapentin) 600 Mg Tab 900 MG PO QID #90 Ref 0 TAB Magnesium (Magnesium) 250 Mg Tab 250 MG PO DAILY Metformin (Metformin) 1,000 Mg Tab 1000 MG PO BIDPC With meals Blood Sugar Management #60 Ref 0 TAB Omeprazole (Omeprazole) 40 Mg Cap 40 MG PO BID #30 Ref 0 CAP Pentosan Polysulfate Sodium (Elmiron) 100 Mg Cap 100 MG PO TID Ref 0 CAP Potassium Gluconate (Potassium Gluconate) 550 Mg Tab 550 MG PO DAILY Rosuvastatin (Rosuvastatin) 10 Mg Tab 10 MG PO HS Cholesterol Management Ref 0 TAB Rosuvastatin (Crestor) 20 Mg Tab 20 MG PO DAILY Cholesterol Management #30 Ref 0 TAB Discontinued Medications: Furosemide (Furosemide) 40 Mg Tab 40 MG PO BID #60 Ref 0 TAB González Meng MD January 30, 2017 9:37 am
[2017-01-31] MEDS ORDERED: PANTOPRAZOLE SOD 40 MG DELAYED RELEASE TAB PO SCH (06:00)
== END 2017-01-30 10:36 | disposition home or self-care (01) | DRG 291 ==
LOC: PHED 21:49 → PHEDA 01-27 01:06 → PH3B 01-27 02:17
PROVIDERS: ADMIT Hospitalist; ATTEND Hospitalist
DX: I50.43 Acute on chronic combined systolic (congestive) and diastolic (congestive) heart failure (principal); J18.9 Pneumonia, unspecified organism; I47.2 Ventricular tachycardia; Z95.1 Presence of aortocoronary bypass graft; J44.0 Chronic obstructive pulmonary disease with (acute) lower respiratory infection; I25.810 Atherosclerosis of coronary artery bypass graft(s) without angina pectoris; J44.1 Chronic obstructive pulmonary disease with (acute) exacerbation; E11.9 Type 2 diabetes mellitus without complications; E78.5 Hyperlipidemia, unspecified; I11.0 Hypertensive heart disease with heart failure; I25.2 Old myocardial infarction; R09.02 Hypoxemia; F17.210 Nicotine dependence, cigarettes, uncomplicated
CPT/HCPCS: 71010; 80048; 80053; 82550; 82948; 83735; 83880; 84484; 85025; 85610; 85730; 87641; 93005; 94640; 94664; 96374; C9113; J1650; J1815; J1940; J2920; J2930